=== PATIENT | male | born 1955 | race Caucasian/White ===

== ENCOUNTER 2022-03-27 09:30 | Emergency (ER) | payer MEDICARE, MEDICAID ==
[~2022-03-27] VITALS: Ht 177.8 cm; Wt 88.0 kg
[~2022-03-27 09:30] MED LIST: AMIO200T67 PO; APIX5TAB3 PO; ASPI-611 PO; CARV6.253 PO; DIGO250T4 PO; LISI5TAB22 PO
[2022-03-27 10:51] LABS: BASOPHILS # (AUTO) 0.1 X10'3 (0-0.2); BASOPHILS % (AUTO) 0.9 % (0-1); EOSINOPHILS # (AUTO) 0.2 X10'3 (0-0.9); EOSINOPHILS % (AUTO) 1.8 % (0-6); HEMATOCRIT 48.2 % (42.0-52.0); HEMOGLOBIN 15.6 g/dl (14.0-17.9); LYMPHOCYTES # (AUTO) 0.9 X10'3 (1.1-4.8); LYMPHOCYTES % (AUTO) 8.6 % (21-51); MEAN CORPUSCULAR HEMOGLOBIN 31.8 PG (27.0-31.0); MEAN CORPUSCULAR HGB CONC 32.4 g/dL (33.0-36.5); MEAN CORPUSCULAR VOLUME 98.1 FL (78-98); MEAN PLATELET VOLUME 9.5 FL (7.4-10.4); MONOCYTES # (AUTO) 1.2 X10'3 (0-0.9); MONOCYTES % (AUTO) 11.2 % (2-12); NEUTROPHILS # (AUTO) 8.1 X10'3 (1.8-7.7); NEUTROPHILS % (AUTO) 77.5 % (42-75); PLATELET COUNT 224 X10'3 (140-440); RED BLOOD COUNT 4.91 X10'6 (4.70-6.10); RED CELL DISTRIBUTION WIDTH 17.1 % (11.5-14.5); WHITE BLOOD COUNT 10.4 X10'3 (4.5-11.0)
[2022-03-27 11:02] LABS: ALANINE AMINOTRANSFERASE 51 U/L (12-78); ALBUMIN 3.2 G/DL (3.4-5.0); ALBUMIN/GLOBULIN RATIO 0.7 (1.1-1.5); ALKALINE PHOSPHATASE 152 IU/L (46-116); ANION GAP 6 (8-16); ASPARTATE AMINO TRANSFERASE 27 U/L (10-37); BILIRUBIN,TOTAL 1.5 MG/DL (0.1-1.0); BLOOD UREA NITROGEN 23 MG/DL (7-18); BUN/CREATININE RATIO 15.9 (5.4-32.0); CALCIUM 9.5 MG/DL (8.5-10.1); CHLORIDE 101 MMOL/L (99-107); CREATININE 1.45 MG/DL (0.60-1.10); GLUCOSE 89 MG/DL (70-104); POTASSIUM 4.3 MMOL/L (3.5-5.1); SODIUM 138 MMOL/L (135-145); TOTAL CARBON DIOXIDE 31.4 MMOL/L (24-32); TOTAL PROTEIN 7.7 G/DL (6.4-8.2); eGFR 49 ML/MIN
[2022-03-27 12:38] VITALS: BP 106/85
== END 2022-03-27 12:40 | disposition home or self-care (01) ==
LOC: ER 09:31
DX: R07.89 Other chest pain (principal); I48.20 Chronic atrial fibrillation, unspecified; M54.2 Cervicalgia; Z98.890 Other specified postprocedural states; Z88.0 Allergy status to penicillin; Z79.82 Long term (current) use of aspirin; Z79.899 Other long term (current) drug therapy
CPT/HCPCS: 36415; 71045; 80053; 83880; 84484; 85025; 93005; 99285

== ENCOUNTER 2022-05-26 10:12 | Day surgery (SDC) | payer MEDICARE, MEDICAID ==
[2022-05-26] VITALS (12 sets, daily range): BP systolic 93–114; BP diastolic 42–83
[~2022-05-26] VITALS: Ht 177.8 cm; Wt 91.5 kg
[2022-05-26] MEDS ORDERED: morphine 10mg/ml inj. IV ONE (10:35)
[2022-05-26] MEDS ORDERED: fentaNYL/PF 50MCG/1 ML 2ML syringe IV ONE (10:35)
[2022-05-26] MEDS ORDERED: normal saline 1000ml 1,000 ML IV SCH (10:35)
[2022-05-26] MEDS ORDERED: METO-411 PO (10:47)
[2022-05-26] MEDS ORDERED: FLUT1BLS4 PO (10:47)
[2022-05-26] MEDS ORDERED: FURO40TA4 PO (10:47)
[2022-05-26] MEDS ORDERED: EMPA10TA PO (10:47)
[2022-05-26] MEDS ORDERED: RIVA20TA PO (10:47)
[2022-05-26] MEDS ORDERED: ALBU18HF2 (10:47)
[2022-05-26] MEDS ORDERED: SACU1TAB PO (10:47)
[2022-05-26] MEDS ORDERED: AMIO200T61 PO (10:47)
[2022-05-26] MEDS ORDERED: MIDAZolam 1mg/ml 10ml vial IV ONE (12:15)
== END 2022-05-26 15:00 | disposition home or self-care (01) ==
LOC: SSTAY O 10:12
PROVIDERS: ATTEND Student in an Organized Health Care Education/Training Program
DX: I48.91 Unspecified atrial fibrillation (principal); I13.0 Hypertensive heart and chronic kidney disease with heart failure and stage 1 through stage 4 chronic kidney disease, or unspecified chronic kidney disease; I50.9 Heart failure, unspecified; N18.9 Chronic kidney disease, unspecified; J44.9 Chronic obstructive pulmonary disease, unspecified; G47.33 Obstructive sleep apnea (adult) (pediatric); Z98.890 Other specified postprocedural states; Z79.899 Other long term (current) drug therapy; Z88.0 Allergy status to penicillin; Z79.01 Long term (current) use of anticoagulants; Z87.891 Personal history of nicotine dependence
CPT/HCPCS: 92960; 93005; J2250; J3010; J7030

== ENCOUNTER 2025-02-21 10:40 | Outpatient (CLI) | payer MEDICARE, MEDICAID ==
[~2025-02-21 10:40] MED LIST changes: +ALBU18HF2 PO; -AMIO200T67 PO; +AMIO200T76 PO; -APIX5TAB3 PO; -ASPI-611 PO; -CARV6.253 PO; -DIGO250T4 PO; +EMPA10TA PO; +FLUT1BLS4 PO; +FURO40TA4 PO; -LISI5TAB22 PO; +METO-411 PO; +RIVA20TA PO; +SACU1TAB PO
[2025-02-21 12:01] LABS: MEAN PLATELET VOLUME 9.3 FL (7.4-10.4); PRE OP HEMATOCRIT 46.7 % (42.0-52.0); PRE OP HEMOGLOBIN 15.5 g/dL (14.0-17.9); PRE OP PLATELET COUNT 250 X10'3 (140-440); PRE OP WHITE BLOOD COUNT 10.3 10'3 (4.8-10.8); RED CELL DISTRIBUTION WIDTH 14.6 % (11.5-14.5)
[2025-02-21 12:15] LABS: CREATININE 1.36 MG/DL (0.60-1.10); PRE OP ALT 24 U/L (30-65); PRE OP ANION GAP 9 (8-16); PRE OP BILIRUB, TOTAL 2.4 MG/DL (0.0-1.0); PRE OP GLUCOSE 96 MG/DL (70-104); PRE OP SODIUM 137 MMOL/L (135-145); TOTAL CARBON DIOXIDE 27.1 MMOL/L (24-32); eGFR 52 ML/MIN
[2025-02-21 12:18] LABS: PRE OP AST 24 U/L (10-37); PRE OP POTASSIUM 5.0 MMOL/L (3.4-5.1)
--- NOTE | 2025-02-21 12:56 | RADIOLOGY REPORT ---
DI CHEST,TWO VIEWS CLINICAL HISTORY: PREOP COMPARISON: CHEST,SINGLE VIEW on DOS: 03/27/22, CHEST,SINGLE VIEW on DOS: 06/26/21 TECHNIQUE: Frontal and lateral view of the chest was obtained FINDINGS: Lines and Tubes: Right pacemaker Lungs: No focal consolidation. Pleura: No effusion. No pneumothorax. Cardiomediastinal contours: Unremarkable Bones: No acute osseous abnormality. IMPRESSION: No acute cardiopulmonary disease.
[2025-02-21] MEDS ORDERED: CHOL200080 PO (13:03)
[2025-02-21] MEDS ORDERED: GABA300C PO (13:03)
[2025-02-21] MEDS ORDERED: HYDR-3964 PO (13:03)
[2025-02-21] MEDS ORDERED: ACET325T55 PO (13:03)
[2025-02-21] MEDS ORDERED: [UNRECOGNIZED DRUG - OTHER] PO (13:03)
[2025-02-21] MEDS ORDERED: ATOR20TA PO (13:03)
[2025-02-21] MEDS ORDERED: FOLI1TAB27 PO (13:03)
[2025-02-21] MEDS ORDERED: APIX5TAB3 PO (13:03)
[2025-02-21] MEDS ORDERED: DULO60CA65 PO (13:03)
[2025-02-27] MEDS ORDERED: AMIO200T76 PO (11:22)
[2025-02-27] MEDS ORDERED: ATOR20TA66 PO (11:22)
[2025-02-27] MEDS ORDERED: gabapentin capsule PO (11:22)
[2025-02-27] MEDS ORDERED: SPIR25TA5 PO (11:22)
[2025-02-27] MEDS ORDERED: METO50TA16 PO (11:22)
== END 2025-02-21 23:59 | disposition home or self-care (01) ==
LOC: LAB 10:40 → EDSTATUS 02-27 12:30
PROVIDERS: ATTEND Orthopaedic Surgery
DX: Z01.818 Encounter for other preprocedural examination (principal); Z95.0 Presence of cardiac pacemaker
CPT/HCPCS: 36415; 71046; 80053; 85025